=== PATIENT | female | born 1955 | race Hispanic/Latino ===

== ENCOUNTER 2016-04-08 23:18 | Emergency (ER) | payer OTHER ==
[~2016-04-08] VITALS: Ht 175.3 cm; Wt 59.0 kg
[~2016-04-08 23:18] MED LIST: CALCIUM 600 +1 EAC2 PO; CRESTOR10 MG PO; DAILY VALUE1 EACH PO; FIBER THERAPY0.52 GM PO; GINKGO BILOBA120 M1 PO; GLUCOSAMINE1000 MG PO; GREEN TEA CAPL1 EACH PO; MARTEN-TAB 3251 EACH PO; NEXIUM40 MG PO; OMEGA DHA92 MG PO; PRAVASTATIN SOD20 MG PO; TEMAZEPAM15 MG PO; VENLAFAXINE H37.5 MG PO; VITAMIN C1000 MG PO; VITAMIN E400 UNIT PO
[2016-04-09 01:10] LABS: HEMATOCRIT 40.9 % (36.0-46.0); MCH 30.8 PG (29.0-34.0); MCHC 33.3 G/DL (30.0-36.0); MCV 92.7 FL (83-99); MEAN PLAT.VOLUME 9.1 uM^3 (9.5-12.4); PLATELET COUNT 437 K/uL (156-360); RBC DIS.WIDTH-CV 11.7 % (11.8-14.6); RED BLOOD COUNT 4.41 M/uL (3.80-5.20); WHITE BLOOD COUNT 10.5 K/uL (4.1-10.2)
[2016-04-09 01:17] LABS: CHLORIDE 108 mEq/L (99-109); POTASSIUM 3.7 mEq/L (3.7-5.4); SODIUM 141 mEq/L (136-147)
[2016-04-09 01:19] LABS: GLUCOSE 111 mg/dL (70-99)
[2016-04-09 01:20] LABS: ANION GAP 12 MEQ/L (2-14)
[2016-04-09 01:22] LABS: GFR ESTIMATE (CALCULATED) > 59 mL/min/
[2016-04-09 01:23] LABS: UREA NITROGEN (BUN) 13 mg/dL (9-23)
[2016-04-09 02:24] VITALS: BP 148/104
== END 2016-04-09 02:24 | disposition home or self-care (01) ==
LOC: EME 23:18
PROVIDERS: Emergency Medicine
DX: G43.909 Migraine, unspecified, not intractable, without status migrainosus (principal); Z86.79 Personal history of other diseases of the circulatory system
CPT/HCPCS: 70450; 80048; 83605; 85027; 99281; 99285; J0780; J1200; J1885; J7030

== ENCOUNTER → 2016-04-27 | Outpatient (CLI) | payer OTHER | END | disposition home or self-care (01) | LOC: AMB 13:00 | PROC: 03BS0ZX Excision of Right Temporal Artery, Open Approach, Diagnostic (ICD-10-PCS; principal; 2016-04-27) | DX: R51 Headache (principal); R70.0 Elevated erythrocyte sedimentation rate | CPT/HCPCS: 88305; 88313 ==

== ENCOUNTER 2016-12-25 17:26 | Emergency (ER) | payer OTHER ==
[~2016-12-25] VITALS: Ht 144.8 cm; Wt 60.7 kg
[2016-12-25 19:17] LABS: HEMATOCRIT 42.8 % (36.0-46.0); MCH 31.9 PG (29.0-34.0); MCHC 33.2 G/DL (30.0-36.0); MCV 96.2 FL (83-99); MEAN PLAT.VOLUME 9.8 uM^3 (9.5-12.4); PLATELET COUNT 320 K/uL (156-360); RBC DIS.WIDTH-CV 11.9 % (11.8-14.6); RBC DIS.WIDTH-SD 41.6 % (39-53); RED BLOOD COUNT 4.45 M/uL (3.80-5.20); WHITE BLOOD COUNT 6.9 K/uL (4.1-10.2)
[2016-12-25 19:28] LABS: CHLORIDE 109 mEq/L (99-109); SODIUM 145 mEq/L (136-147)
[2016-12-25 19:30] LABS: GLUCOSE 99 mg/dL (70-99)
[2016-12-25 19:31] LABS: ANION GAP 14 MEQ/L (2-14)
[2016-12-25 19:32] LABS: TOTAL BILIRUBIN 0.2 mg/dL (0.0-1.0)
[2016-12-25 19:34] LABS: ALKALINE PHOSPHATASE 81 IU/L (3-129); GFR ESTIMATE (CALCULATED) > 59 mL/min/
[2016-12-25 19:35] LABS: DIRECT BILIRUBIN 0.1 mg/dL (0.0-0.3); UREA NITROGEN (BUN) 17 mg/dL (9-23)
[2016-12-25 21:37] LABS: ADD MIUA? NO; BILIRUBIN NEGATIVE; BLOOD NEGATIVE; COLOR COLORLESS ((YELLOW)); GLUCOSE (STRIP) NEGATIVE; KETONES NEGATIVE; LEUKOCYTES NEGATIVE; NITRITE NEGATIVE; PROTEIN (STRIP) NEGATIVE; SPECIFIC GRAVITY 1.005 (1.000-1.030); UROBILINOGEN 0.2 MG/DL (0.2-1.0)
[2016-12-25] MEDS ORDERED: ZOFRAN ODT4 MG PO (21:54)
[2016-12-25] MEDS ORDERED: REGLAN10 MG PO (21:54)
[2016-12-25 21:56] LABS: UCUL ADDED? NO
[2016-12-25 22:17] VITALS: BP 144/80
== END 2016-12-25 22:18 | disposition home or self-care (01) ==
LOC: EME 17:26
PROVIDERS: Nurse Practitioner Family
DX: G43.909 Migraine, unspecified, not intractable, without status migrainosus (principal); H11.31 Conjunctival hemorrhage, right eye; R11.0 Nausea; Z86.79 Personal history of other diseases of the circulatory system; Z87.891 Personal history of nicotine dependence
CPT/HCPCS: 70450; 80048; 80076; 81003; 85027; 99281; 99285; J1200; J7030